=== PATIENT | female | born 1990 | race Caucasian/White ===

== ENCOUNTER → 2022-08-05 | Outpatient (REF) | payer OTHER, BC ==
[~2022-08-05] MED LIST: BUSP15TA OR; FOLI1TAB11 PO; PREN1TAB11 PO; PROZ20CA OR; TRAZ50TA OR
[2022-08-05 14:37] LABS: ALBUMIN 3.9 G/DL (3.2-5.2); ALKALINE PHOSPHATASE 66 U/L (46-116); ALT/SGPT 43 U/L (7.0-40); AST/SGOT 24 U/L (<34); BILIRUBIN,TOTAL 0.3 MG/DL (0.3-1.2); BLOOD UREA NITROGEN 10 MG/DL (9-23); CALCIUM LEVEL 9.1 MG/DL (8.5-10.1); CARBON DIOXIDE LEVEL 26 MMOL/L (20-31); CHLORIDE LEVEL 106 MMOL/L (98-107); CHOLESTEROL LEVEL 155 MG/DL (<200); CHOLESTEROL RISK RATIO 4.01 (<5); CREATININE FOR GFR 0.61 MG/DL (0.55-1.30); GLOMERULAR FILTRATION RATE > 60.0 (>60); GLUCOSE, FASTING 105 MG/DL (60-100); HDL CHOLESTEROL 38.6 MG/DL (>40); NON-HDL-C 116.4 MG/DL; POTASSIUM SERUM 4.1 MMOL/L (3.5-5.1); SODIUM LEVEL 140 MMOL/L (136-145); TOTAL PROTEIN 6.9 G/DL (5.7-8.2); TRIGLYCERIDES LEVEL 102 MG/DL (<150)
[2022-08-05 14:38] LABS: THYROID STIMULATING HORMONE 0.755 uIU/ML (0.55-4.78)
[2022-08-05 14:39] LABS: TOTAL 25(OH) VITAMIN D 27.5 NG/ML (20.0-100.0)
== END ==
LOC: M LAB REF 12:41
PROVIDERS: ATTEND Nurse Practitioner Family
DX: E66.01 Morbid (severe) obesity due to excess calories (principal); E55.9 Vitamin D deficiency, unspecified

== ENCOUNTER → 2023-05-25 | Outpatient (CLI) | payer OTHER ==
[2023-05-25 14:01] LABS: HEMATOCRIT 36.2 % (36.0-47.0); HEMOGLOBIN 11.8 g/dl (12.0-15.5); MEAN CORPUSCULAR HEMOGLOBIN 28.4 pg (27.0-33.0); MEAN CORPUSCULAR HGB CONC 32.6 g/dl (32.0-36.5); PLATELET COUNT, AUTOMATED 266 10^3/uL (150-450); RED BLOOD COUNT 4.16 10^6/uL (4.00-5.40)
[2023-05-25 14:24] LABS: URIC ACID 3.8 MG/DL (3.1-7.8)
[2023-05-25 14:26] LABS: LDH LACTATE DEHYDROGENASE 145 U/L (120-246)
[2023-05-25 14:27] LABS: ALT/SGPT 23 U/L (7.0-40); AST/SGOT 9 U/L (<34); BILIRUBIN,TOTAL 0.3 MG/DL (0.3-1.2); CREATININE FOR GFR 0.42 MG/DL (0.55-1.30); GLOMERULAR FILTRATION RATE > 60.0 (>60)
[2023-05-25 14:30] LABS: TOTAL PROTEIN,RANDOM URINE 16.3 MG/DL (0.0-14.0)
[2023-05-25 14:35] LABS: CREATININE,RANDOM URINE 179.2 MG/DL
[2023-05-25 14:51] LABS: HIV 1&2 SCREEN NEGATIVE (NEGATIVE)
[2023-05-25 15:00] LABS: HEPATITIS C VIRUS ABY INDEX 0.04 INDEX (<0.8)
== END ==
LOC: M PLALAB 10:14
PROVIDERS: ATTEND Advanced Practice Midwife
DX: Z34.92 Encounter for supervision of normal pregnancy, unspecified, second trimester (principal)

== ENCOUNTER → 2023-06-09 | Outpatient (CLI) | payer OTHER | LOC: M WHC 11:24 | PROVIDERS: ATTEND Advanced Practice Midwife | DX: Z34.92 Encounter for supervision of normal pregnancy, unspecified, second trimester (principal) ==

== ENCOUNTER → 2023-06-22 | Outpatient (REF) | payer OTHER, MEDICAID ==
[2023-06-22 15:03] LABS: GC DNA AMPLIFICATION NEGATIVE (NEGATIVE)
== END ==
LOC: M PLALAB 10:31
PROVIDERS: ATTEND Obstetrics & Gynecology
DX: Z34.92 Encounter for supervision of normal pregnancy, unspecified, second trimester (principal)

== ENCOUNTER → 2023-07-15 | Outpatient (CLI) | payer OTHER | LOC: M WHC 11:59 | PROVIDERS: ATTEND Obstetrics & Gynecology | DX: Z36.2 Encounter for other antenatal screening follow-up (principal) ==

== ENCOUNTER → 2023-07-15 | Outpatient (CLI) | payer OTHER ==
[2023-07-15 16:05] LABS: HEMATOCRIT 33.3 % (36.0-47.0); HEMOGLOBIN 10.4 g/dl (12.0-15.5); MEAN CORPUSCULAR HEMOGLOBIN 27.2 pg (27.0-33.0); MEAN CORPUSCULAR HGB CONC 31.2 g/dl (32.0-36.5); MEAN CORPUSCULAR VOLUME 86.9 fl (80.0-96.0); PLATELET COUNT, AUTOMATED 298 10^3/uL (150-450); RED BLOOD COUNT 3.83 10^6/uL (4.00-5.40)
[2023-07-15 17:11] LABS: GC DNA AMPLIFICATION NEGATIVE (NEGATIVE)
== END ==
LOC: M PLALAB 12:47
PROVIDERS: ATTEND Obstetrics & Gynecology
DX: Z34.92 Encounter for supervision of normal pregnancy, unspecified, second trimester (principal)

== ENCOUNTER → 2023-07-21 | Outpatient (CLI) | payer MEDICAID, OTHER ==
[2023-07-21 13:48] LABS: HEMATOCRIT 36.4 % (36.0-47.0); HEMOGLOBIN 11.6 g/dl (12.0-15.5); MEAN CORPUSCULAR HEMOGLOBIN 27.5 pg (27.0-33.0); MEAN CORPUSCULAR HGB CONC 31.9 g/dl (32.0-36.5); MEAN CORPUSCULAR VOLUME 86.3 fl (80.0-96.0); PLATELET COUNT, AUTOMATED 297 10^3/uL (150-450); RED BLOOD COUNT 4.22 10^6/uL (4.00-5.40); WHITE BLOOD COUNT 10.5 10^3/uL (4.0-10.0)
[2023-07-21 14:09] LABS: TOTAL PROTEIN,RANDOM URINE 10.8 MG/DL (0.0-14.0)
[2023-07-21 14:14] LABS: CREATININE,RANDOM URINE 113.8 MG/DL
[2023-07-21 14:17] LABS: ALBUMIN 2.7 G/DL (3.2-5.2); ALKALINE PHOSPHATASE 108 U/L (46-116); ALT/SGPT 20 U/L (7.0-40); AST/SGOT 11 U/L (<34); BILIRUBIN,TOTAL 0.3 MG/DL (0.3-1.2); BLOOD UREA NITROGEN 11 MG/DL (9-23); CARBON DIOXIDE LEVEL 24 MMOL/L (20-31); CHLORIDE LEVEL 104 MMOL/L (98-107); CREATININE FOR GFR 0.45 MG/DL (0.55-1.30); GLOMERULAR FILTRATION RATE > 60.0 (>60); GLUCOSE, FASTING 65 MG/DL (60-100); POTASSIUM SERUM 4.9 MMOL/L (3.5-5.1); SODIUM LEVEL 136 MMOL/L (136-145); TOTAL PROTEIN 6.1 G/DL (5.7-8.2)
== END ==
LOC: M PLALAB 11:05
PROVIDERS: ATTEND Obstetrics & Gynecology
DX: O16.3 Unspecified maternal hypertension, third trimester (principal)

== ENCOUNTER → 2023-07-26 | Outpatient (CLI) | payer OTHER | LOC: M LAB 07:19 | PROVIDERS: ATTEND Obstetrics & Gynecology | DX: R73.09 Other abnormal glucose (principal) ==

== ENCOUNTER → 2023-08-12 | Outpatient (CLI) | payer OTHER | LOC: M RAD 15:03 | PROVIDERS: ATTEND Obstetrics & Gynecology | DX: Z36.2 Encounter for other antenatal screening follow-up (principal); Z3A.33 33 weeks gestation of pregnancy ==

== ENCOUNTER → 2023-08-27 | Outpatient (REF) | payer OTHER, MEDICAID | LOC: M PLALAB 13:22 | PROVIDERS: ATTEND Obstetrics & Gynecology | DX: Z36.89 Encounter for other specified antenatal screening (principal); Z3A.36 36 weeks gestation of pregnancy ==

== ENCOUNTER 2023-09-03 08:31 | Inpatient (IN) | payer OTHER, MEDICAID ==
[~2023-09-03] VITALS: Ht 162.6 cm; Wt 129.0 kg
[2023-09-03] VITALS (32 sets, daily range): BP systolic 127–198; BP diastolic 62–101
[2023-09-03] MEDS ORDERED: PENICILLIN G POTASSIUM 5 MU IV 5 MU in D5W MINI-BAG PLUS 100 ML IV STA (08:43)
[2023-09-03] MEDS: LACTATED RINGER'S 1000 ML IV STA (08:43)
[2023-09-03] MEDS ORDERED: OXYTOCIN INJ 10UNITS/ML 1ML VIAL IM PRN (08:45)
[2023-09-03] MEDS ORDERED: METHYLERGONOVINE MALEATE 0.2MG/ML 1ML VIAL IM PRN (08:45)
[2023-09-03] MEDS ORDERED: OXYTOCIN DRIP 30 UNITS in IV 1 EA IV PRN (08:45)
[2023-09-03] MEDS ORDERED: LIDOCAINE 1% MDV 20ML VIAL INFIL PRN (08:45)
[2023-09-03] MEDS ORDERED: TRANEXAMIC ACID INJection 1,000 MG in NS 100 ML IV PRN (08:45)
[2023-09-03] MEDS ORDERED: CARBOPROST TROMETHAMINE 250 MCG/ML AMP IM PRN (08:45)
[2023-09-03] MEDS ORDERED: **PENDING PCN ENTRY XX SCH (09:00)
[2023-09-03] MEDS ORDERED: IRON65TA2 PO (09:06)
[2023-09-03] MEDS ORDERED: ASPI81CH33 PO (09:07)
[2023-09-03] MEDS ORDERED: HOME MED LIST COMPLETE! XX SCH (09:10)
[2023-09-03 10:08] LABS: HEMATOCRIT 33.2 % (36.0-47.0); HEMOGLOBIN 10.4 g/dl (12.0-15.5); MEAN CORPUSCULAR HEMOGLOBIN 26.2 pg (27.0-33.0); MEAN CORPUSCULAR HGB CONC 31.3 g/dl (32.0-36.5); MEAN CORPUSCULAR VOLUME 83.6 fl (80.0-96.0); PLATELET COUNT, AUTOMATED 263 10^3/uL (150-450); RED BLOOD COUNT 3.97 10^6/uL (4.00-5.40); WHITE BLOOD COUNT 8.9 10^3/uL (4.0-10.0)
[2023-09-03] MEDS: LR 1,000 ML IV SCH (10:36)
[2023-09-03 11:10] LABS: HEPATITIS C VIRUS ABY INDEX 0.05 INDEX (<0.8)
[2023-09-03] MEDS: OXYTOCIN DRIP 30 UNITS in IV 1 EA IV SCH (11:23)
[2023-09-03] MEDS ORDERED: PEN G POT 3,000,000 UNIT/50 ML 3,000,000 UNIT in IV 1 EA IV SCH (12:45)
[2023-09-03] MEDS: PENICILLIN G POTASSIUM 5 MU IV 5 MU in D5W MINI-BAG PLUS 100 ML IV STA (13:10)
[2023-09-03 16:31] LABS: LDH LACTATE DEHYDROGENASE 178 U/L (120-246)
[2023-09-03 16:32] LABS: ALT/SGPT 16 U/L (7.0-40); AST/SGOT 11 U/L (<34); BILIRUBIN,TOTAL 0.3 MG/DL (0.3-1.2); CREATININE FOR GFR 0.36 MG/DL (0.55-1.30); GLOMERULAR FILTRATION RATE > 60.0 (>60)
[2023-09-03 16:37] LABS: URIC ACID 3.2 MG/DL (3.1-7.8)
[2023-09-03] MEDS: PEN G POT 3,000,000 UNIT/50 ML 3,000,000 UNIT in IV 1 EA IV SCH (16:55)
[2023-09-03 18:01] LABS: CREATININE,RANDOM URINE 40.1 MG/DL
[2023-09-03] MEDS: LABETALOL 100MG/20ML VIAL IV STA (18:17)
[2023-09-03] MEDS: LABETALOL 200 MG TAB PO SCH (18:21)
[2023-09-03 18:30] LABS: TOTAL PROTEIN,RANDOM URINE < 6.0 MG/DL (0.0-14.0)
[2023-09-03] MEDS ORDERED: LR 500 ML IV PRN (20:35)
[2023-09-03] MEDS ORDERED: NALOXONE INJ 0.4MG/1ML VIAL IV PRN (20:35)
[2023-09-03] MEDS ORDERED: EPIDURAL/PCA KEYS XX PRN (20:35)
[2023-09-03] MEDS ORDERED: diphenhydrAMINE 50MG/ML VIAL IV PRN (20:35)
[2023-09-03] MEDS: FENTANYL/ROPIVACAINE/NACL BAG 100 ML EPIDURAL SCH (21:17)
[2023-09-03] MEDS: ePHEDrine SULFATE 25 MG/5 ML(5MG/ML) SYRINGE IVP PRN (21:39)
[2023-09-04] VITALS (23 sets, daily range): BP systolic 109–160; BP diastolic 53–87; O2SAT 96–98
[2023-09-04] MEDS: ONDANSETRON 4MG 2ML VIAL IV PRN (07:45)
[2023-09-04] MEDS ORDERED: ACETAMINOPHEN 500 MG TAB PO PRN (09:30)
[2023-09-04] MEDS ORDERED: CALCIUM CARBONATE 500 MG CHEW U/D PO PRN (09:30)
[2023-09-04] MEDS ORDERED: DIBUCAINE 1% OINTMENT 30GM TOP PRN (09:30)
[2023-09-04] MEDS: LR 1,000 ML IV SCH (09:30)
[2023-09-04] MEDS ORDERED: ANUSOL HC CREAM 30GM TOP PRN (09:30)
[2023-09-04] MEDS ORDERED: RHO(D) IMMUNE GLOBULIN/MALTOSE 500MCG(2500IU)/2.2ML VIAL (WINRHO) IM SCH (09:30)
[2023-09-04] MEDS ORDERED: ACETAMINOPHEN TAB 650MG DOSE (2X325MG) PO PRN (09:30)
[2023-09-04] MEDS ORDERED: IBUPROFEN 600MG TAB PO PRN (09:30)
[2023-09-04] MEDS: OXYTOCIN DRIP 30 UNITS in IV 1 EA IV SCH (09:51)
[2023-09-04] MEDS: IBUPROFEN 800 MG TAB PO PRN (20:26)
[2023-09-05 05:50] VITALS: BP 128/62; O2SAT 98
[2023-09-05] MEDS ORDERED: PRENATAL VITAMINS CHEWABLE TABLET PO SCH (09:00)
[2023-09-05] MEDS: ASPIRIN 81MG CHEW TABLET PO SCH (09:44)
[2023-09-05] MEDS: PRENATAL VITAMINS CHEWABLE TABLET PO SCH (09:44)
[2023-09-05] MEDS: FERROUS SULFATE 325MG TAB PO SCH (09:44)
[2023-09-05] MEDS: DOCUSATE SODIUM 100MG CAPSULE PO PRN (15:14)
[2023-09-05 17:57] VITALS: BP 147/69; O2SAT 98
[2023-09-05] MEDS: MOM 30ML SUSPENSION UDC PO PRN (19:28)
[2023-09-06 05:51] VITALS: BP 138/82; O2SAT 98
[2023-09-06] MEDS: MEASLES,MUMPS,RUBELLA VACCINE INJ (MMR-II) SC.IMMUN ONE (09:00)
[2023-09-06] MEDS ORDERED: IBUP80TA PO (09:36)
[2023-09-06] MEDS ORDERED: ACET-683 PO (09:36)
[2023-09-06 10:39] LABS: HEMATOCRIT 30.8 % (36.0-47.0); HEMOGLOBIN 9.7 g/dl (12.0-15.5); MEAN CORPUSCULAR HEMOGLOBIN 26.7 pg (27.0-33.0); MEAN CORPUSCULAR HGB CONC 31.5 g/dl (32.0-36.5); MEAN CORPUSCULAR VOLUME 84.8 fl (80.0-96.0); PLATELET COUNT, AUTOMATED 234 10^3/uL (150-450); RED BLOOD COUNT 3.63 10^6/uL (4.00-5.40); WHITE BLOOD COUNT 7.8 10^3/uL (4.0-10.0)
[2023-09-06 11:11] LABS: LDH LACTATE DEHYDROGENASE 245 U/L (120-246)
[2023-09-06 11:13] LABS: ALT/SGPT 17 U/L (7.0-40); AST/SGOT 12 U/L (<34); BILIRUBIN,TOTAL 0.2 MG/DL (0.3-1.2); CREATININE FOR GFR 0.45 MG/DL (0.55-1.30); GLOMERULAR FILTRATION RATE > 60.0 (>60)
[2023-09-06 11:14] LABS: URIC ACID 4.8 MG/DL (3.1-7.8)
== END 2023-09-06 14:30 | disposition home or self-care (01) | DRG 560 ==
LOC: M LDI 08:31 → M OBS 09-04 11:01
PROVIDERS: ADMIT Advanced Practice Midwife; ATTEND Obstetrics & Gynecology
PROC: 3E033VJ Introduction of Other Hormone into Peripheral Vein, Percutaneous Approach (ICD-10-PCS; 2023-09-03)
PROC: 10E0XZZ Delivery of Products of Conception, External Approach (ICD-10-PCS; principal; 2023-09-04)
PROC: 0HQ9XZZ Repair Perineum Skin, External Approach (ICD-10-PCS; 2023-09-04)
PROC: 10907ZC Drainage of Amniotic Fluid, Therapeutic from Products of Conception, Via Natural or Artificial Opening (ICD-10-PCS; 2023-09-04)
DX: O13.4 Gestational [pregnancy-induced] hypertension without significant proteinuria, complicating childbirth (principal); O99.824 Streptococcus B carrier state complicating childbirth; Z3A.37 37 weeks gestation of pregnancy; O70.0 First degree perineal laceration during delivery; O34.211 Maternal care for low transverse scar from previous cesarean delivery; Z87.891 Personal history of nicotine dependence; Z79.82 Long term (current) use of aspirin; Z79.899 Other long term (current) drug therapy; Z37.0 Single live birth

== ENCOUNTER 2023-11-16 08:18 | Day surgery (SDC) | payer OTHER ==
[~2023-11-16] VITALS: Ht 162.6 cm; Wt 122.5 kg
[~2023-11-16 08:18] MED LIST changes: +ACET-683 PO; +ASPI81CH33 PO; +IBUP80TA PO; +IRON65TA2 PO
[2023-11-16] MEDS ORDERED: LR 1,000 ML IV SCH ×2 (09:30→12:30)
[2023-11-16 10:04] LABS: HEMATOCRIT 36.1 % (36.0-47.0); HEMOGLOBIN 11.6 g/dl (12.0-15.5); MEAN CORPUSCULAR HEMOGLOBIN 27.1 pg (27.0-33.0); MEAN CORPUSCULAR HGB CONC 32.1 g/dl (32.0-36.5); MEAN CORPUSCULAR VOLUME 84.3 fl (80.0-96.0); PLATELET COUNT, AUTOMATED 274 10^3/uL (150-450); RED BLOOD COUNT 4.28 10^6/uL (4.00-5.40); WHITE BLOOD COUNT 12.2 10^3/uL (4.0-10.0)
[2023-11-16] MEDS ORDERED: ROCURONIUM BROMIDE 50MG/5ML VIAL As Ordered ONE (10:36)
[2023-11-16] MEDS ORDERED: fentaNYL 100 MCG/2 ML INJECTION As Ordered ONE (10:36)
[2023-11-16] MEDS ORDERED: propofoL 200 MG/20 ML VIAL As Ordered ONE (10:36)
[2023-11-16] MEDS ORDERED: MIDAZOLAM INJ 2MG/2ML VIAL As Ordered ONE (10:36)
[2023-11-16] MEDS ORDERED: ONDANSETRON 4MG 2ML VIAL As Ordered ONE (10:37)
[2023-11-16] MEDS ORDERED: KETOROLAC 60MG 2ML VIAL As Ordered ONE (10:37)
[2023-11-16] MEDS ORDERED: ACETAMINOPHEN 1000MG 100ML IV BAG As Ordered ONE (10:37)
[2023-11-16] MEDS ORDERED: SUGAMMADEX SODIUM 500 MG/5 ML VIAL (BRIDION) As Ordered ONE (10:37)
[2023-11-16] MEDS ORDERED: ePHEDrine SULFATE 25 MG/5 ML(5MG/ML) SYRINGE As Ordered ONE (11:54)
[2023-11-16] MEDS ORDERED: fentaNYL 100 MCG/2 ML INJECTION IV PRN (12:30)
[2023-11-16] MEDS ORDERED: HYDROMORPHONE HCL 0.5 MG/ 0.5 ML SYRINGE IV PRN (12:30)
[2023-11-16] MEDS ORDERED: PERCOCET 5MG/325MG TAB PO PRN (12:55)
[2023-11-16] MEDS: ONDANSETRON 4MG 2ML VIAL IV PRN (13:00)
[2023-11-16] MEDS: oxyCODONE 5MG TAB PO PRN (13:00)
[2023-11-16 13:16] VITALS: BP 148/78; TEMP 96.7; O2SAT 97
[2023-11-16] MEDS ORDERED: KETOROLAC 30 MG/ML 1ML VIAL IV SCH (18:00)
== END 2023-11-16 13:43 | disposition home or self-care (01) ==
LOC: M SDC 08:18
PROVIDERS: ATTEND Obstetrics & Gynecology
DX: Z30.2 Encounter for sterilization (principal); F41.9 Anxiety disorder, unspecified; F32.A Depression, unspecified; Z87.891 Personal history of nicotine dependence; Z79.899 Other long term (current) drug therapy
CPT/HCPCS: 36415; 58661; 81025; 85027; 86850; 86900; 86901; 88302; J0131; J0665; J1100; J1885; J2250; J2405; J3010

== ENCOUNTER → 2024-01-27 | Outpatient (REF) | payer MEDICAID, OTHER ==
[2024-01-27 17:29] LABS: HEMATOCRIT 38.2 % (36.0-47.0); MEAN CORPUSCULAR HEMOGLOBIN 27.6 pg (27.0-33.0); MEAN CORPUSCULAR HGB CONC 31.4 g/dl (32.0-36.5); PLATELET COUNT, AUTOMATED 342 10^3/uL (150-450); RED BLOOD COUNT 4.34 10^6/uL (4.00-5.40); WHITE BLOOD COUNT 13.8 10^3/uL (4.0-10.0)
[2024-01-27 18:06] LABS: THYROID STIMULATING HORMONE 1.523 uIU/ML (0.55-4.78)
[2024-01-27 18:13] LABS: BLOOD UREA NITROGEN 14 MG/DL (9-23); CALCIUM LEVEL 9.5 MG/DL (8.5-10.1); CARBON DIOXIDE LEVEL 28 MMOL/L (20-31); CHLORIDE LEVEL 105 MMOL/L (98-107); CHOLESTEROL LEVEL 188 MG/DL (<200); CHOLESTEROL RISK RATIO 4.63 (<5); CREATININE FOR GFR 0.56 MG/DL (0.55-1.30); GLOMERULAR FILTRATION RATE > 60.0 (>60); GLUCOSE, FASTING 74 MG/DL (60-100); HDL CHOLESTEROL 40.6 MG/DL (>40); IRON (FE) 39 UG/DL (50-170); LDL CHOLESTEROL 97.2 MG/DL (<100); NON-HDL-C 147.4 MG/DL; PERCENT SATURATION 10.3 % (13.2-45.0); POTASSIUM SERUM 4.4 MMOL/L (3.5-5.1); SODIUM LEVEL 138 MMOL/L (136-145); TOTAL IRON BINDING CAPACITY 377 UG/DL (250-425); TRIGLYCERIDES LEVEL 251 MG/DL (<150)
[2024-01-27 18:50] LABS: ATYPICAL LYMPH 13 % (0-5); EOSINOPHILS 3 % (0-3); LYMPHOCYTES 30 % (16-44); MONOCYTES 5 % (0-5); NEUTROPHILS 49 % (28-66); PLATELET ESTIMATE NORMAL (NORMAL)
== END ==
LOC: M LAB REF 16:21
PROVIDERS: ATTEND Nurse Practitioner Family
DX: E66.01 Morbid (severe) obesity due to excess calories (principal); D72.829 Elevated white blood cell count, unspecified; N94.6 Dysmenorrhea, unspecified; R03.0 Elevated blood-pressure reading, without diagnosis of hypertension; Z68.42 Body mass index [BMI] 45.0-49.9, adult

== ENCOUNTER → 2024-06-07 | Outpatient (REF) | payer OTHER ==
[2024-06-07 17:35] LABS: BASO # 0.1 10^3/uL (0.0-0.2); BASO % 0.5 % (0.0-1.0); EOS # 0.2 10^3/uL (0.0-0.5); EOS % 1.7 % (0.0-3.0); HEMATOCRIT 38.3 % (36.0-47.0); LYMPH % 44.5 % (24.0-44.0); MEAN CORPUSCULAR HEMOGLOBIN 27.4 pg (27.0-33.0); MEAN CORPUSCULAR HGB CONC 31.3 g/dl (32.0-36.5); MEAN CORPUSCULAR VOLUME 87.4 fl (80.0-96.0); MONO # 0.6 10^3/uL (0.0-0.8); MONO % 5.7 % (2.0-8.0); NEUTROPHILS # 5.3 10^3/uL (1.5-8.5); NEUTROPHILS % 47.3 % (36.0-66.0); PLATELET COUNT, AUTOMATED 295 10^3/uL (150-450); RED BLOOD COUNT 4.38 10^6/uL (4.00-5.40); WHITE BLOOD COUNT 11.1 10^3/uL (4.0-10.0)
[2024-06-07 17:40] LABS: FERRITIN 14.5 NG/ML (7.3-270.7)
[2024-06-07 17:41] LABS: THYROID STIMULATING HORMONE 1.062 uIU/ML (0.55-4.78)
== END ==
LOC: M LAB REF 16:38
PROVIDERS: ATTEND Nurse Practitioner Family
DX: F41.8 Other specified anxiety disorders (principal); E61.1 Iron deficiency; D72.829 Elevated white blood cell count, unspecified

== ENCOUNTER → 2024-12-29 | Outpatient (CLI) | payer OTHER ==
[~2024-12-29] MED LIST changes: +B-12100010 PO; +BUPR150T12; +CHOL125C5 PO; +FERR325T3; +OMEG350C PO
== END ==
LOC: M RAD 12:12
PROVIDERS: ATTEND Nurse Practitioner Family
DX: N94.6 Dysmenorrhea, unspecified (principal)

== ENCOUNTER → 2025-01-12 | Outpatient (CLI) | payer OTHER | LOC: M RAD 11:48 | PROVIDERS: ATTEND Nurse Practitioner Family | DX: M25.50 Pain in unspecified joint (principal); R76.8 Other specified abnormal immunological findings in serum; N94.6 Dysmenorrhea, unspecified; M54.40 Lumbago with sciatica, unspecified side ==

== ENCOUNTER 2025-01-20 09:06 | Emergency (ER) | payer OTHER ==
[~2025-01-20] VITALS: Ht 162.6 cm; Wt 108.9 kg
[2025-01-20 09:43] LABS: APPEARANCE, URINE HAZY (CLEAR); BACTERIA, URINE AUTO NEGATIVE (NEGATIVE); BILIRUBIN, URINE AUTO NEGATIVE (NEGATIVE); BLOOD, URINE BLOOD NEGATIVE (NEGATIVE); GLUCOSE, URINE (UA) AUTO NEGATIVE (NEGATIVE); KETONE, URINE AUTO NEGATIVE (NEGATIVE); LEUKOCYTE ESTERASE, URINE AUTO NEGATIVE (NEGATIVE); MUCUS, URINE LARGE (NEGATIVE); NITRITE, URINE AUTO NEGATIVE (NEGATIVE); PROTEIN, URINE AUTO 1+ mg/dL (NEGATIVE); RBC, URINE AUTO 0 /HPF (0-3); SPECIFIC GRAVITY URINE AUTO 1.029 (1.002-1.035); SQUAMOUS EPITHELIAL CELL UR AU 3 /HPF (0-6); UROBILINOGEN, URINE AUTO 2.0 mg/dL (0.0-2.0); WBC, URINE AUTO 6 /HPF (0-3)
[2025-01-20 09:53] LABS: BASO # 0.1 10^3/uL (0.0-0.2); BASO % 0.4 % (0.0-1.0); EOS # 0.5 10^3/uL (0.0-0.5); EOS % 3.2 % (0.0-3.0); LYMPH # 4.8 10^3/uL (1.5-5.0); LYMPH % 34.5 % (24.0-44.0); MONO # 1.0 10^3/uL (0.0-0.8); MONO % 7.0 % (2.0-8.0); NEUTROPHILS # 7.6 10^3/uL (1.5-8.5); NEUTROPHILS % 54.7 % (36.0-66.0); PLATELET COUNT, AUTOMATED 306 10^3/uL (150-450)
[2025-01-20 10:22] LABS: CALCIUM LEVEL 8.9 MG/DL (8.5-10.1); CARBON DIOXIDE LEVEL 24 MMOL/L (20-31); CHLORIDE LEVEL 104 MMOL/L (98-107); CREATININE FOR GFR 0.70 MG/DL (0.55-1.30); GLOMERULAR FILTRATION RATE > 90.0 (>60); POTASSIUM SERUM 4.1 MMOL/L (3.5-5.1); SODIUM LEVEL 137 MMOL/L (136-145)
[2025-01-20 10:37] LABS: ALT/SGPT 33 U/L (7.0-40); AST/SGOT 12 U/L (<34)
[2025-01-20] MEDS: MAALOX 30 ML SUSP *UDC PO ONE (12:09)
[2025-01-20] MEDS: SUCRALFATE SUSP 1GM/10ML UD PO ONE (12:09)
[2025-01-20] MEDS: LIDOCAINE VISCOUS 2% SOLN 15 ML UDC PO ONE (12:10)
[2025-01-20] MEDS: NS (Normal Saline) 0.9% 1,000 ML IV ONE (12:10)
[2025-01-20] MEDS: ONDANSETRON 4MG 2ML VIAL IV ONE (12:56)
[2025-01-20] MEDS: KETOROLAC 30 MG/ML 1 ML VIAL IV ONE (12:56)
[2025-01-20] MEDS ORDERED: ISOVUE-370 76% 100 ML VIAL As Ordered ONE (13:02)
[2025-01-20] MEDS ORDERED: ONDA-282 PO (16:10)
[2025-01-20] MEDS ORDERED: SUCR1SS PO (16:10)
[2025-01-20] MEDS ORDERED: PANT40TA29 PO (16:10)
[2025-01-20 16:13] VITALS: BP 123/76; TEMP 98.2; O2SAT 96
== END 2025-01-20 16:25 | disposition home or self-care (01) ==
LOC: M ED 09:06
DX: A08.8 Other specified intestinal infections (principal); K50.90 Crohn's disease, unspecified, without complications; E27.9 Disorder of adrenal gland, unspecified; Z79.899 Other long term (current) drug therapy; Z79.810 Long term (current) use of selective estrogen receptor modulators (SERMs)
CPT/HCPCS: 74177; 80048; 80076; 81001; 82150; 83690; 85025; 87486; 87507; 87581; 87633; 87798; 96361; 96374; 99284; J1885; J2405; Q9967

== ENCOUNTER → 2025-02-23 | Outpatient (CLI) | payer OTHER ==
[~2025-02-23] MED LIST changes: +ONDA-282 PO; +PANT40TA29 PO; +SUCR1SS PO
[2025-02-23 13:34] LABS: PLATELET COUNT, AUTOMATED 303 10^3/uL (150-450)
[2025-02-23 13:39] LABS: ALT/SGPT 17 U/L (7.0-40); AST/SGOT 13 U/L (<34); CALCIUM LEVEL 9.1 MG/DL (8.5-10.1); CARBON DIOXIDE LEVEL 28 MMOL/L (20-31); CHLORIDE LEVEL 107 MMOL/L (98-107); CREATININE FOR GFR 0.58 MG/DL (0.55-1.30); GLOMERULAR FILTRATION RATE > 90.0 (>60); POTASSIUM SERUM 4.6 MMOL/L (3.5-5.1); SODIUM LEVEL 141 MMOL/L (136-145)
[2025-02-23 13:41] LABS: PROLACTIN 6.89 NG/ML
[2025-02-23 13:51] LABS: ESTIMATED AVERAGE GLUCOSE 100.0 MG/DL (60-110)
[2025-02-27 13:42] LABS: HPV APTIMA Not Detected (Not Detected)
== END ==
LOC: M PLALAB 10:00
PROVIDERS: ATTEND Obstetrics & Gynecology
DX: O92.70 Unspecified disorders of lactation (principal); O26.899 Other specified pregnancy related conditions, unspecified trimester; Z3A.00 Weeks of gestation of pregnancy not specified

== ENCOUNTER → 2025-04-16 | Outpatient (CLI) | payer OTHER | LOC: M RAD 07:12 | PROVIDERS: ATTEND Nurse Practitioner Family | DX: R19.7 Diarrhea, unspecified (principal); R10.11 Right upper quadrant pain ==